=== PATIENT | female | born 1965 ===

== ENCOUNTER → 2019-04-03 | Outpatient (CLI) | payer SELFPAY ==
--- NOTE | 2019-04-03 13:21 | RAD ---
Examination: BREAST RIGHT History: Abnormal mammogram and right breast ultrasound exam performed at an outside facility Comparison/Correlation: 02/06/2019 bilateral breast ultrasound exam, 01/24/2019 mammographic exam, 11/23/2016 screening mammographic exam, 01/27/2017 left breast ultrasound exam Findings: Ultrasound imaging of the right breast at the 5:00 to 7:00 region was performed. Ultrasound imaging otherwise involving the right lower breast was performed. Heterogeneous hypoechogenicity is noted throughout the lower one half of the right breast. There is no palpable abnormality upon physical exam by myself about the lower one half of the periareolar region. No corresponding mammographic abnormalities identified. Right axillary region is unremarkable with benign-appearing lymph node present. Impression: BI-RADS Category 3-probably benign. There is extensive heterogeneous hypoechogenicity of the right breast. The patient has dense breast parenchyma on mammographic imaging. Follow-up in 4 months from now with right unilateral mammography with tomosynthesis and right breast ultrasound is recommended to assess stability. Electronically signed by: Charles Metz MD (04/03/2019 1:18 PM) [facility]
== END | disposition home or self-care (01) ==
LOC: US 07:37
PROVIDERS: ATTEND Physician Assistant Medical
DX: N63.10 Unspecified lump in the right breast, unspecified quadrant (principal)
CPT/HCPCS: 76641